=== PATIENT | female | born 1995 ===

== ENCOUNTER 2018-03-01 23:13 | Emergency (ER) | payer SELFPAY ==
[2018-03-01 23:34] VITALS: RESP 20; TEMP 98.6
--- NOTE | 2018-03-02 00:44 | C.PDOC ---
History Of Present Illness 22 year old female with no PMHx presents to the ED c/o cough and itchy throat for the past month. Patient reports the 3-4 days ago while coughing she felt a pop in her right sided ribcage. Patient reports friend who lives at home with her also has been coughing for the past month. Patient reports she took cough syrup, and 600 mg Motrin today. Patient denies fever, chills, headache, CP, SOB, palpitations, dizziness, change in urination, back pain, rash, weakness, numbness. Time Seen by Provider: 03/02/18 00:22 Chief Complaint (Nursing): Back Pain History Per: Patient History/Exam Limitations: no limitations Onset/Duration Of Symptoms: Persistent (month) Current Symptoms Are (Timing): Still Present Quality Of Discomfort: "Pain" Exacerbating Factor(s): Other (cough) Recent travel outside of the [place]: No Additional History Per: Patient Past Medical History Reviewed: Historical Data, Nursing Documentation, Vital Signs Vital Signs: Last Vital Signs Temp 98.6 F 03/01/18 23:29 Pulse 100 H 03/01/18 23:29 Resp 20 03/01/18 23:29 BP 114/76 03/01/18 23:29 Pulse Ox 99 03/01/18 23:29 - Medical History PMH: Hypercholesterolemia Surgical History: No Surg Hx Family History: States: Unknown Family Hx - Social History Hx Alcohol Use: Yes Hx Substance Use: No Review Of Systems Constitutional: Negative for: Fever, Chills Eyes: Negative for: Vision Change Cardiovascular: Positive for: Chest Pain. Negative for: Palpitations Respiratory: Positive for: Cough. Negative for: Shortness of Breath, Sputum Gastrointestinal: Negative for: Nausea, Vomiting, Abdominal Pain Genitourinary: Negative for: Dysuria Musculoskeletal: Negative for: Back Pain Neurological: Negative for: Weakness, Numbness, Headache, Dizziness Physical Exam - Physical Exam Appears: Non-toxic, No Acute Distress Skin: Normal Color, Warm, Dry, No Rash Head: Atraumatic, Normacephalic Eye(s): bilateral: Normal Inspection Nose: Discharge (clear nasal), Other (bilateral enlarged turbinates) Oral Mucosa: Moist Throat: Normal, No Erythema, No Exudate, No Drooling, Other (airway patent) Neck: Normal ROM, Trachea Midline, Supple Chest: Symmetrical, Tenderness (reproducible pain right lateral and posterior ribcage) Cardiovascular: Rhythm Regular Respiratory: Normal Breath Sounds, No Rales, No Rhonchi, No Wheezing Gastrointestinal/Abdominal: Soft, No Tenderness, No Guarding, No Rebound, Other (obese) Back: Normal Inspection Extremity: Normal ROM, No Tenderness, Capillary Refill (<2 seconds), No Swelling Pulses: Left Radial: Normal, Right Radial: Normal Neurological/Psych: Oriented x3, Normal Speech, Normal Cognition Gait: Steady ED Course And Treatment O2 Sat by Pulse Oximetry: 99 (ON RA) Pulse Ox Interpretation: Normal Medical Decision Making Medical Decision Making: Plan: * CXR Disposition Counseled Patient/Family Regarding: Studies Performed, Diagnosis, Need For Followup, Rx Given - Disposition Referrals: [facility] [Outside] [facility] [Outside] Disposition: HOME/ ROUTINE Disposition Time: 01:50 Condition: STABLE Additional Instructions: KAJAL BAER, thank you for letting us take care of you today. Your provider was Dr. Nguyen/ HORACIO Grubbs and you were treated for LOWER BACK PAIN. The emergency medical care you received today was directed at your acute symptoms. If you were prescribed any medication, please fill it and take as directed. It may take several days for your symptoms to resolve. Return to the Emergency Department if your symptoms worsen, do not improve, or if you have any other problems. Please contact your doctor or call one of the physicians/clinics you have been referred to that are listed on the Patient Visit Information form that is included in your discharge packet. Bring any paperwork you were given at discharge with you along with any medications you are taking to your follow up visit. Our treatment cannot replace ongoing medical care by a primary care provider outside of the emergency department. Thank you for allowing the [facility] team to be part of your care today. If you had an X-Ray or CT scan: A Radiologist will review the ED reading if any change in treatment is needed we will contact you. 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 - Scribe Statement The provider has reviewed the documentation as recorded by the Scribe Gui Castañeda All medical record entries made by the Ursulaibe were at my direction and personally dictated by me. I have reviewed the chart and agree that the record accurately reflects my personal performance of the history, physical exam, medical decision making, and the department course for this patient. I have also personally directed, reviewed, and agree with the discharge instructions and disposition.
[2018-03-02 01:57] VITALS: BP 109/77; PULSE 55; O2SAT 98
--- NOTE | 2018-03-02 10:23 | RAD ---
Date of service: 03/02/2018 HISTORY: right sided rib pain COMPARISON: No prior. FINDINGS: LUNGS: No active pulmonary disease. PLEURA: No significant pleural effusion identified, no pneumothorax apparent. CARDIOVASCULAR: No aortic atherosclerotic calcification present. Normal cardiac size. No pulmonary vascular congestion. OSSEOUS STRUCTURES: No significant abnormalities. VISUALIZED UPPER ABDOMEN: Normal. OTHER FINDINGS: None. IMPRESSION: No active disease.
== END 2018-03-02 02:10 | disposition home or self-care (01) ==
LOC: C.ER 23:13
DX: J06.9 Acute upper respiratory infection, unspecified (principal); M94.0 Chondrocostal junction syndrome [Tietze]

== ENCOUNTER 2018-07-04 09:29 | Emergency (ER) | payer OTHER ==
[2018-07-04 09:33] VITALS: BMI 44.3
[2018-07-04 09:38] VITALS: BP 142/77; PULSE 99; RESP 18; TEMP 99; O2SAT 99
[2018-07-04] MEDS ORDERED: cefTRIAXone 250 MG, Lidocaine Hydrochloride 1% 1 ML IM ONE (09:50)
[2018-07-04 10:08] LABS: SQUAMOUS EPITHIAL 10 /hpf (0-5); URINE AMORPHOUS SEDIMENT RARE /ul (<OCC); URINE BACTERIA RARE (<OCC); URINE BILIRUBIN NEGATIVE (NEGATIVE); URINE BLOOD NEGATIVE (NEGATIVE); URINE CLARITY Hazy (Clear); URINE COLOR Amber (YELLOW); URINE GLUCOSE (UA) NORMAL (Normal); URINE LEUKOCYTE ESTERASE 2+ Leu/uL (Negative); URINE PROTEIN 2+ mg/dL (NEGATIVE); URINE UROBILINOGEN NORMAL mg/dL (0.2-1.0)
[2018-07-04 10:10] LABS: HCG,QUALITATIVE URINE NEGATIVE (NEGATIVE)
--- NOTE | 2018-07-04 10:16 | C.PDOC ---
Time Seen by Provider: 07/04/18 09:41 Chief Complaint (Nursing): Female Genitourinary Past Medical History Vital Signs: Last Vital Signs Temp 99 F 07/04/18 09:33 Pulse 99 H 07/04/18 09:33 Resp 18 07/04/18 09:33 BP 142/77 07/04/18 09:33 Pulse Ox 99 07/04/18 09:33 - Medical History PMH: Hypercholesterolemia Family History: States: Unknown Family Hx - Social History Hx Alcohol Use: No Hx Substance Use: No ED Course And Treatment - Laboratory Results Lab Results: Urine Color Madyson (YELLOW) 07/04/18 09:47 Urine Clarity Hazy (Clear) 07/04/18 09:47 Urine pH 7.0 (5.0-8.0) 07/04/18 09:47 Ur Specific [place] 1.020 (1.003-1.030) 07/04/18 09:47 Urine Protein 2+ mg/dL (NEGATIVE) H 07/04/18 09:47 Urine Glucose (UA) Normal mg/dL (Normal) 07/04/18 09:47 Urine Ketones Negative mg/dL (NEGATIVE) 07/04/18 09:47 Urine Blood Negative (NEGATIVE) 07/04/18 09:47 Urine Nitrate Negative (NEGATIVE) 07/04/18 09:47 Urine Bilirubin Negative (NEGATIVE) 07/04/18 09:47 Urine Urobilinogen Normal mg/dL (0.2-1.0) 07/04/18 09:47 Ur Leukocyte Esterase 2+ Milly/uL (Negative) H 07/04/18 09:47 Urine WBC (Auto) 30 /hpf (0-5) H 07/04/18 09:47 Urine RBC (Auto) 4 /hpf (0-3) H 07/04/18 09:47 Ur Squamous Epith Cells 10 /hpf (0-5) H 07/04/18 09:47 Amorphous Sediment Rare /ul (<OCC) H 07/04/18 09:47 Urine Bacteria Rare (<OCC) 07/04/18 09:47 Urine HCG, Qual Negative (NEGATIVE) 07/04/18 09:47 Urine HCG, Qual Negative (NEGATIVE) 07/04/18 09:47 O2 Sat by Pulse Oximetry: 99 Disposition Counseled Patient/Family Regarding: Studies Performed, Diagnosis, Need For Followup, Rx Given - Disposition Disposition: HOME/ ROUTINE Disposition Time: 10:13 Condition: STABLE Prescriptions: Nitrofurantoin Monohyd/M-Cryst [Macrobid 100 mg Capsule] 100 mg PO BID #14 capsule Instructions: Urinary Tract Infections in Adults, Screening for Sexually Transmitted Infections - Clinical Impression Clinical Impression: UTI (urinary tract infection), Screening examination for STD (sexually transmitted disease)
--- NOTE | 2018-07-04 10:16 | C.PDOC ---
History Of Present Illness 22 year old female presents for evaluation of frequent urination s/p unprotected sex a few days ago. The pt reports frequent burning and clear vaginal discharge. Denies fever, chills, vaginal bleeding, and any other associated symptoms. Time Seen by Provider: 07/04/18 09:41 Chief Complaint (Nursing): Female Genitourinary History Per: Patient History/Exam Limitations: no limitations Onset/Duration Of Symptoms: Days Current Symptoms Are (Timing): Still Present Recent travel outside of the [place]: No Past Medical History Reviewed: Historical Data, Nursing Documentation, Vital Signs Vital Signs: Last Vital Signs Temp 99 F 07/04/18 09:33 Pulse 99 H 07/04/18 09:33 Resp 18 07/04/18 09:33 BP 142/77 07/04/18 09:33 Pulse Ox 99 07/04/18 09:33 - Medical History PMH: Hypercholesterolemia Family History: States: Unknown Family Hx - Social History Hx Alcohol Use: No Hx Substance Use: No Review Of Systems Except As Marked, All Systems Reviewed And Found Negative. Constitutional: Negative for: Fever, Chills Genitourinary: Positive for: Frequency, Vaginal Discharge (clear. ). Negative for: Vaginal Bleeding Physical Exam - Physical Exam Appears: Non-toxic, No Acute Distress Skin: Warm, Dry Head: Atraumatic, Normacephalic Eye(s): bilateral: Normal Inspection Oral Mucosa: Moist Neck: Normal ROM, Supple Cardiovascular: Rhythm Regular, No Murmur Respiratory: Normal Breath Sounds, No Rales, No Rhonchi, No Wheezing Gastrointestinal/Abdominal: Normal Exam, Soft, No Tenderness Pelvic: Other (pelvic exam deferred.) Extremity: Bilateral: Atraumatic, Normal Color And Temperature, Normal ROM Neurological/Psych: Oriented x3, Normal Speech, Normal Cognition ED Course And Treatment - Laboratory Results Lab Results: Urine Color Madyson (YELLOW) 07/04/18 09:47 Urine Clarity Hazy (Clear) 07/04/18 09:47 Urine pH 7.0 (5.0-8.0) 07/04/18 09:47 Ur Specific [place] 1.020 (1.003-1.030) 07/04/18 09:47 Urine Protein 2+ mg/dL (NEGATIVE) H 07/04/18 09:47 Urine Glucose (UA) Normal mg/dL (Normal) 07/04/18 09:47 Urine Ketones Negative mg/dL (NEGATIVE) 07/04/18 09:47 Urine Blood Negative (NEGATIVE) 07/04/18 09:47 Urine Nitrate Negative (NEGATIVE) 07/04/18 09:47 Urine Bilirubin Negative (NEGATIVE) 07/04/18 09:47 Urine Urobilinogen Normal mg/dL (0.2-1.0) 07/04/18 09:47 Ur Leukocyte Esterase 2+ Milly/uL (Negative) H 07/04/18 09:47 Urine WBC (Auto) 30 /hpf (0-5) H 07/04/18 09:47 Urine RBC (Auto) 4 /hpf (0-3) H 07/04/18 09:47 Ur Squamous Epith Cells 10 /hpf (0-5) H 07/04/18 09:47 Amorphous Sediment Rare /ul (<OCC) H 07/04/18 09:47 Urine Bacteria Rare (<OCC) 07/04/18 09:47 Urine HCG, Qual Negative (NEGATIVE) 07/04/18 09:47 Urine HCG, Qual Negative (NEGATIVE) 07/04/18 09:47 O2 Sat by Pulse Oximetry: 99 (RA) Pulse Ox Interpretation: Normal Medical Decision Making Medical Decision Making: Initial plan: -Chlamydia RNA -Rocephin -Zithromax -HCG Urine -Urinalysis Progress/Update: Discussed with pt preventative treatment for STD. Pt agreed to treatment. Pt stable for discharge home. Prescribed Macrobid. Disposition - Disposition Disposition: HOME/ ROUTINE Disposition Time: 10:20 Condition: STABLE Prescriptions: Nitrofurantoin Monohyd/M-Cryst [Macrobid 100 mg Capsule] 100 mg PO BID #14 capsule Nitrofurantoin Monohyd/M-Cryst [Macrobid 100 mg Capsule] 100 mg PO BID #14 capsule Instructions: Urinary Tract Infections in Adults, Screening for Sexually Transmitted Infections Forms: [facility] (Amharic) - Clinical Impression Clinical Impression: UTI (urinary tract infection), Screening examination for STD (sexually transmitted disease) - Scribe Statement The provider has reviewed the documentation as recorded by the Scribe (Shira Olvera) Provider Attestation: All medical record entries made by the Scribe were at my direction and personally dictated by me. I have reviewed the chart and agree that the record accurately reflects my personal performance of the history, physical exam, medical decision making, and the department course for this patient. I have also personally directed, reviewed, and agree with the discharge instructions and disposition.
== END 2018-07-04 10:38 | disposition home or self-care (01) ==
LOC: C.ER 09:29
DX: N39.0 Urinary tract infection, site not specified (principal); Z11.3 Encounter for screening for infections with a predominantly sexual mode of transmission
CPT/HCPCS: 81001; 84703; 87491; 87591; 96372; 99283; J0696

== ENCOUNTER 2018-07-08 11:59 | Emergency (ER) | payer OTHER ==
[2018-07-08 12:00] VITALS: BMI 44.3
[2018-07-08 12:07] VITALS: TEMP 98.6
[2018-07-08 12:14] VITALS: BP 123/85; PULSE 124; RESP 20; O2SAT 98
--- NOTE | 2018-07-08 12:49 | C.PDOC ---
History Of Present Illness 22 y/o female presents to ED complaining of dysuria x1 week. Patient was seen on 07/04/18 in the ED reporting unprotected sex and concern for STD. UA, GC and chlamydia testing was performed. UA was positive for UTI and she was treated with rocephin and azithromycin, and currently on macrobid. She presents here today for continued dysuria and is now noticing vaginal itching for about 2 days. Patient reports she tried over the counter monistat with some improvement of the itching but continues to have dysuria. Denies any vaginal discharge or bleeding, nausea, vomiting, abdominal pain, diarrhea, fever, or chills. Chief Complaint (Nursing): Female Genitourinary History Per: Patient History/Exam Limitations: no limitations Onset/Duration Of Symptoms: Days Current Symptoms Are (Timing): Still Present Past Medical History Reviewed: Historical Data, Nursing Documentation, Vital Signs Vital Signs: Last Vital Signs Temp 98.6 F 07/08/18 12:13 Pulse 124 H 07/08/18 12:13 Resp 20 07/08/18 12:13 BP 123/85 07/08/18 12:13 Pulse Ox 98 07/08/18 12:13 - Medical History PMH: Hypercholesterolemia Family History: States: No Known Family Hx - Social History Hx Alcohol Use: No Hx Substance Use: No Review Of Systems Constitutional: Negative for: Fever, Chills Gastrointestinal: Negative for: Nausea, Vomiting, Abdominal Pain, Diarrhea Genitourinary: Positive for: Dysuria. Negative for: Vaginal Discharge, Vaginal Bleeding Neurological: Negative for: Headache, Dizziness Physical Exam - Physical Exam Appears: Non-toxic, No Acute Distress Skin: Warm, Dry Head: Atraumatic Eye(s): bilateral: Normal Inspection Oral Mucosa: Moist Neck: Supple Cardiovascular: Rhythm Regular Respiratory: Normal Breath Sounds Pelvic: No Vaginal Bleeding, Other (white medication noted, no excoriation, no lesions) Extremity: Bilateral: Atraumatic Neurological/Psych: Oriented x3, Normal Speech ED Course And Treatment O2 Sat by Pulse Oximetry: 98 (RA) Pulse Ox Interpretation: Normal Medical Decision Making Medical Decision Making: GC/Chlamydia results were negative from prior visit. Will treat with pyridium and one dose fluconazole now for dysuria and rock. Patient to follow up with [facility]. Patient verbalizes understanding and is in agreement with plan. Patient is stable for discharge. Disposition Counseled Patient/Family Regarding: Diagnosis, Need For Followup, Rx Given - Disposition [facility] Disposition: HOME/ ROUTINE Disposition Time: 12:46 Condition: IMPROVED Additional Instructions: Follow up with line patroller adriana 1-2 days complete course of antibiotics start pyridium to help with the painful urination return to the ED if symptoms worsen Prescriptions: Phenazopyridine [Pyridium] 200 mg PO TID #6 tab Instructions: Urinary Tract Infection, Adult (DC), Yeast Infection (DC) Forms: [employer] (Uzbek) - Clinical Impression Clinical Impression: UTI (urinary tract infection), Candidiasis of genitalia in female - PA / WATER VESSEL CAPTAIN / Resident Statement MD/DO has reviewed & agrees with the documentation as recorded. - Scribe Statement The provider has reviewed the documentation as recorded by the Scribguillermina Hays All medical record entries made by the Alexia were at my direction and personally dictated by me. I have reviewed the chart and agree that the record accurately reflects my personal performance of the history, physical exam, medical decision making, and the department course for this patient. I have also personally directed, reviewed, and agree with the discharge instructions and disposition.
== END 2018-07-08 13:03 | disposition home or self-care (01) ==
LOC: C.ER 11:59
DX: N39.0 Urinary tract infection, site not specified (principal); B37.3 Candidiasis of vulva and vagina